=== PATIENT | male | born 1995 | race African-American/Black ===

== ENCOUNTER 2020-01-18 08:03 | Inpatient (IN) | payer OTHER ==
[~2020-01-18] VITALS: Ht 170.2 cm; Wt 78.2 kg
[2020-01-18 08:04] VITALS: BP 141/99
[2020-01-18] MEDS ORDERED: REGLAN10 MG PO (08:06)
--- NOTE | 2020-01-18 08:09 | NUR ---
SS: [id number] ADDRESS: [address], [facility] [address] PHONE: [phone] EMERGENCY CONTACT: CELIA CONKLIN ([facility] [place]) PHONE: [phone] EMPLOYER: UNEMPLOYED
[2020-01-18 09:20] LABS: ABSOLUTE NEUTROPHILS 5.7 thou/uL (1.4-8.2); EOSINOPHILS 1.4 % (0.0-3.0); HEMATOCRIT 44.4 % (42.0-52.0); HEMOGLOBIN 15.2 gm/dL (14.0-18.0); LYMPHOCYTES 24.7 % (24.0-44.0); MCH 28.6 pg (26.0-34.0); MCHC 34.2 g/dL (28.0-37.0); MCV 83.4 fL (80.0-100.0); PLATELET COUNT 312 thou/uL (150-400); POLYS 62.9 % (36.0-66.0); RBC 5.32 mil/uL (4.50-6.00); RDW 12.7 % (10.5-14.5)
[2020-01-18 09:24] LABS: ANION GAP 13 mmol/L (7-16); BUN 34 mg/dL (7-18); CALCIUM 9.2 mg/dL (8.5-10.1); CHLORIDE 94 mmol/L (98-107); CO2 24 mmol/L (21-32); CREATININE 1.4 mg/dL (0.7-1.3); GLUCOSE 112 mg/dL (74-106); POTASSIUM 3.8 mmol/L (3.5-5.1); SODIUM 131 mmol/L (136-145)
[2020-01-18 09:32] LABS: TROPONIN-I <0.06 ng/mL (<0.06)
[2020-01-18 11:13] VITALS: BP 133/77
[2020-01-18 11:27] VITALS: BP 133/68
--- NOTE | 2020-01-18 11:35 | EKG ---
[facility] [place] [address] ELECTROCARDIOGRAM REPORT Name: DEREK GRIJALVA Room #: 170 ADM IN M.R.#: [id number] Admission: 01/18/20 Attend Phys: Segun Thomason MD Discharge: Date of : [birth year] Report #: [id number] THIS REPORT FOR: cc: [place] - Fina family physician/PCP [place] - No family physician/PCP Roberto Guillen MD ~ THIS REPORT FOR: //name// [facility] ED Test Date: 2020-01-18 Test Time: 09:16:27 Pat Name: DEREK GRIJALVA Department: Room: [facility] Gender: M Scaler: rishabh : 1995 Requested By: Ac Beebe Order Number: [id number] MD: Roberto Guillen Measurements Intervals [place] Rate: 66 P: 56 MS: 147 QRS: 19 QRSD: 91 T: 40 QT: 400 QTc: 420 Interpretive Statements Sinus rhythm Ventricular premature complex Artifact noted Baseline wander in lead(s) V1 No previous ECG available for comparison Electronically Signed On 01-18-2020 11:33:40 CDT by Roberto Guillen [email or web address] <ELECTRONICALLY SIGNED> By: Roberto Guillen MD 01/18/20 1133 Roberto Guillen MD /EPI
[2020-01-18 13:41] VITALS: BP 139/108
--- NOTE | 2020-01-18 15:31 | NUR ---
ASSUMED CARE AT 1200, ADMISSION DONE, MEDS GIVEN, VSS. ON TELE, TACHYCARDIC AT TIMES. HICCUPS DID NOT GET ANY BETTER, THORAZINE PRN ORDERED, HELPING WITH SYMPTOMS. RESTING IN THE BED, NO NAUSEA. WILL CONTINUE TO ASSESS AND ASSIST WITH ADLs NEEDED.
[2020-01-18 19:38] VITALS: BP 139/46
[2020-01-18 23:58] VITALS: BP 123/71
--- NOTE | 2020-01-19 03:39 | NUR ---
RECEIVED IN BED SLEEPING. AXOX4. INDEPENDENT WITH ADLs. REPORTS UNRELIEVED PAIN. 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 DENIES N/V/HICCUPS AT THIS TIME. NO S/S ACUTE DISTRESS NOTED OR REPORTED AT THIS TIME. WILL CONT TO MONITOR FOR ANY CHANGES IN CONDITION.
[2020-01-19 04:35] VITALS: BP 130/80
[2020-01-19 07:24] VITALS: BP 133/79
[2020-01-19 09:39] LABS: MCH 28.3 pg (26.0-34.0); MCHC 32.9 g/dL (28.0-37.0); MCV 86.1 fL (80.0-100.0); RBC 4.18 mil/uL (4.50-6.00); RDW 12.6 % (10.5-14.5); WBC 5.1 thou/uL (4.0-11.0)
[2020-01-19 09:40] LABS: HEMOGLOBIN 11.8 gm/dL (14.0-18.0)
[2020-01-19 09:56] LABS: CALCIUM 8.4 mg/dL (8.5-10.1); CREATININE 1.1 mg/dL (0.7-1.3); MAGNESIUM 2.1 mg/dL (1.8-2.4); POTASSIUM 3.2 mmol/L (3.5-5.1)
--- NOTE | 2020-01-19 10:40 | NUR ---
chart review. cm consulted, cm visited with him via phone call, intro to cm, and dcp. he is able to make his needs know, a & o x 4. alexander reported " feeling nauseate after breakfast. live alone in apartment. 13 [address] with [address] to apartment. no stairs inside. independent. drive and work outside the home"/alexander. refused need for resources for drugs or ethol support outside hospital. will cont following as needed for dc needs.
--- NOTE | 2020-01-19 12:24 | HC ---
[facility] [place] [address] CONSULTATION Name: DEREK GRIJALVA Room #: [facility] ADM IN M.R.#: [id number] Admission: 01/18/20 Attend Phys: Segun Thomason MD Discharge: Date of : [birth year] Report #: [id number] THIS REPORT FOR: cc: [place] - No family physician/PCP [place] - No family physician/PCP Javon Locke MD ~ CC: [facility] physician/PCP Javon Thomason DATE OF SERVICE: 01/18/2020 We were asked by Dr. Thomason to see the patient. HISTORY OF PRESENT ILLNESS: The patient is a 24-year-old admitted with pneumomediastinum. The patient has a history of shortness of breath and chest discomfort. The patient states that he was drinking alcohol to excess on Sunday and and started to have nausea and vomiting. He had significant retching followed by a long bout of hiccups. When seen in the Emergency Department, chest x-ray showed pneumomediastinum. CT scan including GI contrast showed no evidence for esophageal perforation. The patient was admitted for observation. PAST MEDICAL HISTORY: The patient denies chronic problems to me. ALLERGIES: None known. MEDICATIONS AT HOME: Denies having any medication or prescriptions. SOCIAL HISTORY: The patient is unemployed. He does use alcohol and does occasionally use marijuana, but states he has not used any recently. The patient is a tobacco smoker. REVIEW OF SYSTEMS: No complaints other than described in the history and I agree with the review of systems as dictated in the Emergency Department. PHYSICAL EXAMINATION: VITAL SIGNS: Temperature 37.1, pulse 109, blood pressure 139 systolic, O2 sat 98 on room air, respiratory rate 18. HEENT: No scleral icterus, no arcus. NECK: No mass, no bruit. CHEST: Clear. HEART: Rhythm regular. I do not feel any crepitation in the chest. EXTREMITIES: No clubbing, cyanosis or edema. ABDOMEN: Soft, no mass. NEUROLOGIC: No motor or sensory dysfunction. [facility] [address] [place] [address] CONSULTATION Name: [facility] Room #: [facility] ADM IN M.R.#: [id number] Admission: 01/18/20 Attend Phys: Segun Thomason MD Discharge: Date of : 89 Report #: [id number] MUSCULOSKELETAL: No bone or joint dissymmetry or deformity. ASSESSMENT AND PLAN: The patient has pneumomediastinum after vomiting, largely appears to be asymptomatic at this point. Recommended observation with repeat chest x-ray in the morning and if satisfactory, the patient should be able to have diet advanced and be discharged in satisfactory condition with followup as needed. I have counseled the patient regarding habits including cigarette, marijuana and alcohol. Thank you for the consult. <ELECTRONICALLY SIGNED> By: Javon Locke MD 01/19/20 1224 [id number] Javon Locke MD /bong
[2020-01-19 15:46] VITALS: BP 116/64
--- NOTE | 2020-01-19 17:38 | NUR ---
PT A&OX4, VSS, CEASAR PAIN. PATIENT C/O OF NAUSEA NO VOMITING. FLUIDS STOPPED ORDERED, IV LEFT AC. GI CONSULTED AND IN TO SEE PATIENT. PATIENT SINUS RHYTHM ON TELE MONIOR. PATIENT ADVANCED TO FULL LIQUID DIET, WILL HOLD AT THIS LEVEL D/T NAUSEA. NO SIGNS OF DISTRESS. WILL CONTINUE TO MONITOR.
[2020-01-19 20:01] VITALS: BP 114/70
[2020-01-20 04:29] VITALS: BP 111/92
[2020-01-20 06:28] LABS: HEMATOCRIT 37.5 % (42.0-52.0); HEMOGLOBIN 12.3 gm/dL (14.0-18.0); MCH 28.5 pg (26.0-34.0); MCHC 32.9 g/dL (28.0-37.0); MCV 86.7 fL (80.0-100.0); RBC 4.32 mil/uL (4.50-6.00); RDW 12.9 % (10.5-14.5); WBC 5.2 thou/uL (4.0-11.0)
[2020-01-20 06:43] LABS: ALBUMIN 3.6 g/dL (3.4-5.0); DIRECT BILIRUBIN 0.4 mg/dL (<0.1-0.2); TOTAL BILIRUBIN 1.2 mg/dL (0.2-1.0); TOTAL PROTEIN 6.4 g/dL (6.4-8.2)
[2020-01-20 06:45] LABS: CALCIUM 8.3 mg/dL (8.5-10.1); MAGNESIUM 2.3 mg/dL (1.8-2.4); POTASSIUM 3.4 mmol/L (3.5-5.1)
--- NOTE | 2020-01-20 07:23 | NUR ---
ASSUMED PT CARE AROUND 1930. AXOX4. INDEPENDENT WITH ADLs. CALLS APPROPIRATELY FOR HELP. PERSISTENT PAIN TO STERNUM. NO S/S ACUTE DISTRESS NOTED OR REPORTED AT THIS TIME. CARE TRANSFERRED TO INCOMING RN AT THIS TIME.
[2020-01-20 07:53] VITALS: BP 115/58
[2020-01-20 11:12] VITALS: BP 116/68
[2020-01-20 16:14] VITALS: BP 121/67
[2020-01-20] MEDS ORDERED: PROTONIX40 M1 PO (16:18)
[2020-01-20] MEDS ORDERED: CHLORPROMAZINE25 M1 PO (16:19)
[2020-01-20 17:07] VITALS: BP 121/67
--- NOTE | 2020-01-20 18:02 | NUR ---
Assumed pt care this am , VS stable no nausea or vomiting noted. Advanced diet as tolerated, mild pain is still felt with regular diet but tolerable. Pain is managed with medications. POC followed witn no sigsn or verbalizations of distrtess noted. Mother informed of status, Dc intructions given to the pt, medications have been sent to the pharmacy. IV removed, Pt has been picked up by the mother pt is now DC.
== END 2020-01-20 18:08 | disposition home or self-care (01) | DRG 199 ==
LOC: ER 08:03 → EROBS 10:55 → 4W 10:55
PROVIDERS: Emergency Medicine; Nurse Practitioner; ADMIT Internal Medicine; ATTEND Internal Medicine
DX: J98.2 Interstitial emphysema (principal); N17.0 Acute kidney failure with tubular necrosis; E87.1 Hypo-osmolality and hyponatremia; R11.14 Bilious vomiting; K27.9 Peptic ulcer, site unspecified, unspecified as acute or chronic, without hemorrhage or perforation; E87.8 Other disorders of electrolyte and fluid balance, not elsewhere classified; Z87.891 Personal history of nicotine dependence; Z56.0 Unemployment, unspecified; Z79.899 Other long term (current) drug therapy
CPT/HCPCS: 10045